=== PATIENT | female | born 1980 | race Caucasian/White ===

== ENCOUNTER 2017-11-20 14:27 | Emergency (ER) | payer MEDICAID ==
[2017-11-20 14:39] VITALS: BP 129/82
[2017-11-20] MEDS ORDERED: LORazepam 1 MG Tab PO ONE (14:55)
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
== END 2017-11-20 15:14 | disposition home or self-care (01) ==
LOC: JP.ED 14:27
DX: F41.0 Panic disorder [episodic paroxysmal anxiety] (principal); F31.9 Bipolar disorder, unspecified; F43.10 Post-traumatic stress disorder, unspecified; Z88.8 Allergy status to other drugs, medicaments and biological substances; Z79.899 Other long term (current) drug therapy; Z79.82 Long term (current) use of aspirin; Z87.01 Personal history of pneumonia (recurrent)
CPT/HCPCS: 99283; A9270

== ENCOUNTER 2022-08-26 07:12 | Day surgery (SDC) | payer BC, MEDICAID ==
[2022-08-26] MEDS ORDERED: Glycopyrrolate 0.2 MG/ML 2 ML SDV IVPUSH ONE (08:30)
[2022-08-26] MEDS ORDERED: Cyanocobalamin (Vitamin B12) 1,000 MCG/ML SDV IM ONE (08:30)
[2022-08-26] MEDS ORDERED: Lactated Ringers 1,000 ML IV ONE (08:30)
[2022-08-26] MEDS ORDERED: Propofol 200 MG/20 ML SDV ONE (08:57)
[2022-08-26] MEDS ORDERED: Midazolam 1 MG/ML 2 ML SDV ONE (08:57)
[2022-08-26] MEDS ORDERED: fentaNYL 50 MCG/ML SDV ONE (08:57)
[2022-08-26] MEDS ORDERED: MVI, Adult with Vitamin K 10 ML, Thiamine 200 MG, Chromium/Copper/Mang/Selen/Zn 1 ML in... IV ONE ×4 (09:15)
[2022-08-26 11:10] VITALS: BP 109/67; PULSE 72
== END 2022-08-26 11:25 | disposition home or self-care (01) ==
LOC: JP.SDS 07:12
PROVIDERS: ATTEND Surgery
DX: R13.10 Dysphagia, unspecified (principal); Z98.84 Bariatric surgery status; Z79.899 Other long term (current) drug therapy; Z88.5 Allergy status to narcotic agent; Z88.8 Allergy status to other drugs, medicaments and biological substances
CPT/HCPCS: 81025; 87081; J2250; J2704; J3010; J3411; J3420; J3490; J7120

== ENCOUNTER 2022-09-10 07:50 | Inpatient (IN) | payer BC, MEDICAID ==
[~2022-09-10 07:50] MED LIST: Meropenem 500 MG SDV ONE
[2022-09-10] MEDS ORDERED: Neostigmine Methylsulfate 1 MG/ML 5 ML Syringe ONE (07:51)
[2022-09-10] MEDS ORDERED: Rocuronium 50 MG/5 ML Vial ONE ×2 (07:51→11:34)
[2022-09-10] MEDS ORDERED: fentaNYL 250 MCG/5 ML SDV ONE ×3 (07:51→12:07)
[2022-09-10] MEDS ORDERED: Propofol 200 MG/20 ML SDV ONE (07:51)
[2022-09-10] MEDS ORDERED: Glycopyrrolate 0.2 MG/ML 5 ML MDV ONE (07:51)
[2022-09-10] MEDS ORDERED: Dexamethasone 4 MG/ML SDV ONE (07:51)
[2022-09-10] MEDS ORDERED: Succinylcholine 200 MG/10 ML MDV ONE (07:51)
[2022-09-10] MEDS ORDERED: Ondansetron 4 MG/2 ML SDV ONE (07:51)
[2022-09-10] MEDS ORDERED: Scopolamine 1.5 MG Transdermal Patch TOP SCH (08:00)
[2022-09-10] MEDS ORDERED: Celecoxib 200 MG Cap PO ONE (08:00)
[2022-09-10] MEDS ORDERED: Acetaminophen 500 MG Tab PO ONE (08:00)
[2022-09-10] MEDS ORDERED: Albuterol/Ipratropium 3.0-0.5 MG/3 ML Neb Soln NEB ONE (09:00)
[2022-09-10] MEDS ORDERED: Dextrose 5%-Lactated Ringers 1,000 ML IV SCH ×2 (09:00→15:15)
[2022-09-10] MEDS ORDERED: cefOXitin 2 GM in Sodium Chloride 0.9% 50 ML IV ONE (09:15)
[2022-09-10] MEDS ORDERED: Ropivacaine 50 ML, dexAMETHasone 8 MG, EPINEPHrine 0.4 MG, Sodium Chloride 0.9% 27.6 ML NERVRT SCH ×4 (09:45)
[2022-09-10] MEDS ORDERED: Naloxone 0.4 MG/ML SDV IV PRN (09:45)
[2022-09-10] MEDS ORDERED: Ketamine 500 MG/5 ML MDV IV SCH (09:45)
[2022-09-10] MEDS ORDERED: Ketamine 17 MG in Sodium Chloride 0.9% 19.83 ML IV SCH (09:45)
[2022-09-10] MEDS ORDERED: Linezolid 600 MG/300 ML Premix Bag IRR ONE (11:02)
[2022-09-10] MEDS ORDERED: Lactated Ringers 1,000 ML ONE (11:17)
[2022-09-10] MEDS: HYDROmorphone/Normal Saline 6 MG/30 ML PCA Vial IV PRN ×2 (11:21→20:43)
[2022-09-10] MEDS ORDERED: Sugammadex Sodium 200 MG/2 ML VIAL ONE (14:02)
[2022-09-10] MEDS ORDERED: Labetalol 20 MG/4 ML Syringe IVPUSH PRN (16:00)
[2022-09-10] MEDS ORDERED: Metoclopramide 10 MG/2 ML SDV IVPUSH PRN (16:00)
[2022-09-10] MEDS ORDERED: Acetaminophen 500 MG Tab PO PRN (16:00)
[2022-09-10] MEDS ORDERED: diphenhydrAMINE 50 MG/ML SDV IVPUSH PRN (16:00)
[2022-09-10] MEDS ORDERED: Ondansetron 4 MG/2 ML SDV IVPUSH PRN (16:00)
[2022-09-10] MEDS: MVI, Adult with Vitamin K 10 ML, Thiamine 200 MG, Zinc/Copper/Manganese/Selenium 1 ML i... IV SCH ×4 (16:57)
[2022-09-10] MEDS: cefOXitin 2 GM in Sodium Chloride 0.9% 50 ML IV SCH ×2 (16:58→22:28)
[2022-09-10] MEDS: SCOPOLAMINE PATCH CHECK TOP SCH (17:03)
[2022-09-10] MEDS: Acetaminophen 500 MG Tab PO SCH (17:07)
[2022-09-10] MEDS: Pantoprazole 40 MG Vial IVPUSH SCH (17:08)
[2022-09-10] MEDS: BUPRENORPHINE SL SCH ×2 (20:43)
[2022-09-10] MEDS: NALOXONE BUPRENORPHINE SL SCH ×2 (20:43)
[2022-09-10] MEDS: NALOXONE SL SCH ×2 (20:43)
[2022-09-10] MEDS: Heparin Sodium 5,000 Units/ML Vial SUBCUT SCH (20:44)
[2022-09-10] MEDS: Albuterol/Ipratropium 3.0-0.5 MG/3 ML Neb Soln INH SCH (20:45)
[2022-09-10] MEDS ORDERED: Methocarbamol 500 MG Tab PO ONE (22:00)
[2022-09-10] MEDS: Dextrose 5%-Lactated Ringers 1,000 ML IV SCH (22:28)
[2022-09-10] MEDS: Amitriptyline 25 MG Tab PO SCH (22:30)
[2022-09-10] MEDS: cloNIDine 0.1 MG Tab PO SCH (22:31)
[2022-09-10] MEDS: lamoTRIgine 100 MG Tab PO SCH (22:31)
[2022-09-10] MEDS: rOPINIRole 1 MG Tab PO SCH (22:31)
[2022-09-11] MEDS: Acetaminophen 500 MG Tab PO SCH ×4 (00:13→23:59)
[2022-09-11] MEDS ORDERED: Iopamidol 612 MG/ML 50 ML SDV PO PRN (02:56)
[2022-09-11] MEDS: cefOXitin 2 GM in Sodium Chloride 0.9% 50 ML IV SCH ×4 (03:54→21:29)
[2022-09-11] MEDS: Dextrose 5%-Lactated Ringers 1,000 ML IV SCH ×2 (03:58→05:37)
[2022-09-11] MEDS ORDERED: Iopamidol 612 MG/ML 30 ML SDV PO ONE (04:09)
[2022-09-11 05:30] LABS: ESTIMATED GFR 113 mL/min (>60)
[2022-09-11] MEDS: Albuterol/Ipratropium 3.0-0.5 MG/3 ML Neb Soln INH SCH ×4 (07:25→20:33)
[2022-09-11] MEDS: Heparin Sodium 5,000 Units/ML Vial SUBCUT SCH ×2 (08:38→20:33)
[2022-09-11] MEDS: Gabapentin 300 MG Cap PO SCH (08:39)
[2022-09-11] MEDS: Celecoxib 200 MG Cap PO SCH ×2 (08:39→20:36)
[2022-09-11] MEDS ORDERED: Dextrose 5%-Lactated Ringers 1,000 ML IV SCH (09:00)
[2022-09-11] MEDS ORDERED: Buprenorphine/Naloxone 8-2 MG Tab.SL SL SCH (09:00)
[2022-09-11] MEDS: Citalopram 20 MG Tab PO SCH (11:36)
[2022-09-11] MEDS: Paliperidone 3 MG Tab.ER PO SCH (11:36)
[2022-09-11] MEDS: lamoTRIgine 100 MG Tab PO SCH ×2 (11:37→20:35)
[2022-09-11] MEDS: Bisacodyl 5 MG Tab PO SCH ×2 (11:37→20:34)
[2022-09-11] MEDS: Polyethylene Glycol 3350 Powder 17 GM Packet PO SCH (11:37)
[2022-09-11] MEDS: SCOPOLAMINE PATCH CHECK TOP SCH (11:37)
[2022-09-11] MEDS: Docusate Sodium 100 MG Cap PO SCH ×2 (11:37→20:34)
[2022-09-11] MEDS: Buprenorphine/Naloxone 8-2 MG Tab.SL SL SCH (11:38)
[2022-09-11] MEDS: HYDROmorphone/Normal Saline 6 MG/30 ML PCA Vial IV PRN (12:17)
[2022-09-11] MEDS: MVI, Adult with Vitamin K 10 ML, Thiamine 200 MG, Zinc/Copper/Manganese/Selenium 1 ML i... IV SCH ×4 (15:00)
[2022-09-11] MEDS: Pantoprazole 40 MG Vial IVPUSH SCH (15:05)
[2022-09-11] MEDS: BUPRENORPHINE SL SCH ×2 (20:33)
[2022-09-11] MEDS: NALOXONE SL SCH ×2 (20:33)
[2022-09-11] MEDS: NALOXONE BUPRENORPHINE SL SCH ×2 (20:33)
[2022-09-11] MEDS: Amitriptyline 25 MG Tab PO SCH (20:34)
[2022-09-11] MEDS: rOPINIRole 1 MG Tab PO SCH (20:35)
[2022-09-11] MEDS ORDERED: Amitriptyline 25 MG Tab PO SCH (21:00)
[2022-09-11] MEDS ORDERED: rOPINIRole 1 MG Tab PO SCH (21:00)
[2022-09-11] MEDS ORDERED: lamoTRIgine 100 MG Tab PO SCH (21:00)
[2022-09-11] MEDS ORDERED: cloNIDine 0.1 MG Tab PO SCH (21:00)
[2022-09-11] MEDS: cloNIDine 0.1 MG Tab PO SCH (21:20)
[2022-09-11] MEDS: Methocarbamol 500 MG Tab PO PRN (21:28)
[2022-09-12] MEDS: HYDROmorphone/Normal Saline 6 MG/30 ML PCA Vial IV PRN ×2 (00:20→07:46)
[2022-09-12] MEDS: cefOXitin 2 GM in Sodium Chloride 0.9% 50 ML IV SCH ×2 (03:36→10:22)
[2022-09-12] MEDS: Albuterol/Ipratropium 3.0-0.5 MG/3 ML Neb Soln INH SCH ×4 (07:42→20:40)
[2022-09-12] MEDS: Acetaminophen 500 MG Tab PO SCH ×3 (08:18→23:08)
[2022-09-12] MEDS: Heparin Sodium 5,000 Units/ML Vial SUBCUT SCH ×2 (08:18→20:42)
[2022-09-12] MEDS: Docusate Sodium 100 MG Cap PO SCH ×2 (08:21→20:43)
[2022-09-12] MEDS: Paliperidone 3 MG Tab.ER PO SCH (08:21)
[2022-09-12] MEDS: Bisacodyl 5 MG Tab PO SCH ×2 (08:21→20:43)
[2022-09-12] MEDS: lamoTRIgine 100 MG Tab PO SCH ×2 (08:22→20:42)
[2022-09-12] MEDS: Celecoxib 200 MG Cap PO SCH ×2 (08:22→20:46)
[2022-09-12] MEDS: Citalopram 20 MG Tab PO SCH (08:22)
[2022-09-12] MEDS: Gabapentin 300 MG Cap PO SCH (08:22)
[2022-09-12] MEDS: Polyethylene Glycol 3350 Powder 17 GM Packet PO SCH (08:23)
[2022-09-12] MEDS: SCOPOLAMINE PATCH CHECK TOP SCH (08:23)
[2022-09-12] MEDS: Buprenorphine/Naloxone 8-2 MG Tab.SL SL SCH (08:30)
[2022-09-12] MEDS ORDERED: Cyanocobalamin (Vitamin B12) 1,000 MCG/ML SDV IM ONE (09:00)
[2022-09-12] MEDS ORDERED: Dextrose 5%-Lactated Ringers 1,000 ML IV SCH (09:00)
[2022-09-12] MEDS: oxyCODONE 5 MG Tab PO PRN ×3 (11:58→20:39)
[2022-09-12] MEDS ORDERED: EMGALITY SUBCUT ONE (14:30)
[2022-09-12] MEDS ORDERED: Metoclopramide 10 MG Tab PO PRN (16:24)
[2022-09-12] MEDS: Methocarbamol 500 MG Tab PO PRN (20:40)
[2022-09-12] MEDS: NALOXONE SL SCH ×2 (20:41)
[2022-09-12] MEDS: BUPRENORPHINE SL SCH ×2 (20:41)
[2022-09-12] MEDS: NALOXONE BUPRENORPHINE SL SCH ×2 (20:41)
[2022-09-12] MEDS: Amitriptyline 25 MG Tab PO SCH (20:42)
[2022-09-12] MEDS: rOPINIRole 1 MG Tab PO SCH (20:43)
[2022-09-12] MEDS: cloNIDine 0.1 MG Tab PO SCH (20:51)
[2022-09-12] MEDS: hydrOXYzine HCL 100 MG/2 ML SDV IM PRN (22:38)
[2022-09-13] MEDS: oxyCODONE 5 MG Tab PO PRN ×2 (01:13→06:01)
[2022-09-13] MEDS: Albuterol/Ipratropium 3.0-0.5 MG/3 ML Neb Soln INH PRN (01:15)
[2022-09-13] MEDS: Cyclobenzaprine 10 MG Tab PO PRN ×3 (03:48→22:39)
[2022-09-13] MEDS: Albuterol/Ipratropium 3.0-0.5 MG/3 ML Neb Soln INH SCH ×5 (06:57→20:05)
[2022-09-13] MEDS: Acetaminophen 500 MG Tab PO SCH ×2 (08:05→15:24)
[2022-09-13] MEDS: Celecoxib 200 MG Cap PO SCH ×2 (08:06→20:08)
[2022-09-13] MEDS: Citalopram 20 MG Tab PO SCH (08:07)
[2022-09-13] MEDS: Docusate Sodium 100 MG Cap PO SCH ×2 (08:08→20:06)
[2022-09-13] MEDS: Bisacodyl 5 MG Tab PO SCH ×2 (08:08→20:06)
[2022-09-13] MEDS: lamoTRIgine 100 MG Tab PO SCH ×2 (08:09→20:07)
[2022-09-13] MEDS: Paliperidone 3 MG Tab.ER PO SCH (08:09)
[2022-09-13] MEDS: Gabapentin 300 MG Cap PO SCH (08:10)
[2022-09-13] MEDS: Heparin Sodium 5,000 Units/ML Vial SUBCUT SCH ×2 (08:11→19:04)
[2022-09-13] MEDS: Buprenorphine/Naloxone 8-2 MG Tab.SL SL SCH (08:11)
[2022-09-13] MEDS: hydrOXYzine HCL 100 MG/2 ML SDV IM PRN ×3 (08:12→17:56)
[2022-09-13] MEDS: Polyethylene Glycol 3350 Powder 17 GM Packet PO SCH (08:12)
[2022-09-13] MEDS: HYDROmorphone 2 MG Tab PO PRN ×3 (10:41→22:39)
[2022-09-13] MEDS: rOPINIRole 1 MG Tab PO SCH (20:06)
[2022-09-13] MEDS: Amitriptyline 25 MG Tab PO SCH (20:06)
[2022-09-13] MEDS: cloNIDine 0.1 MG Tab PO SCH (20:07)
[2022-09-13] MEDS: NALOXONE SL SCH ×2 (20:16)
[2022-09-13] MEDS: Methocarbamol 500 MG Tab PO PRN (20:16)
[2022-09-13] MEDS: BUPRENORPHINE SL SCH ×2 (20:16)
[2022-09-13] MEDS: NALOXONE BUPRENORPHINE SL SCH ×2 (20:16)
[2022-09-14] MEDS: Acetaminophen 500 MG Tab PO SCH ×2 (00:46→08:08)
[2022-09-14] MEDS: hydrOXYzine HCL 100 MG/2 ML SDV IM PRN (01:02)
[2022-09-14] MEDS: Albuterol/Ipratropium 3.0-0.5 MG/3 ML Neb Soln INH PRN (04:48)
[2022-09-14] MEDS: HYDROmorphone 2 MG Tab PO PRN (05:35)
[2022-09-14 07:22] VITALS: BP 121/70; PULSE 81
[2022-09-14] MEDS: Albuterol/Ipratropium 3.0-0.5 MG/3 ML Neb Soln INH SCH (07:42)
[2022-09-14] MEDS: Heparin Sodium 5,000 Units/ML Vial SUBCUT SCH (08:07)
[2022-09-14] MEDS: Paliperidone 3 MG Tab.ER PO SCH (08:08)
[2022-09-14] MEDS: Celecoxib 200 MG Cap PO SCH (08:09)
[2022-09-14] MEDS: Citalopram 20 MG Tab PO SCH (08:10)
[2022-09-14] MEDS: Bisacodyl 5 MG Tab PO SCH (08:10)
[2022-09-14] MEDS: Gabapentin 300 MG Cap PO SCH (08:10)
[2022-09-14] MEDS: Docusate Sodium 100 MG Cap PO SCH (08:10)
[2022-09-14] MEDS: Polyethylene Glycol 3350 Powder 17 GM Packet PO SCH (08:11)
[2022-09-14] MEDS: lamoTRIgine 100 MG Tab PO SCH (08:11)
[2022-09-14] MEDS: Cyclobenzaprine 10 MG Tab PO PRN (08:25)
[2022-09-14] MEDS: Buprenorphine/Naloxone 8-2 MG Tab.SL SL SCH (08:35)
== END 2022-09-14 10:32 | disposition home or self-care (01) | DRG 220 ==
LOC: JP.SDS 07:50 → JP.MS 15:08
PROVIDERS: ADMIT Surgery; ATTEND Surgery
PROC: 0DB50ZZ Excision of Esophagus, Open Approach (ICD-10-PCS; principal; 2022-09-10)
PROC: 0DB60ZZ Excision of Stomach, Open Approach (ICD-10-PCS; 2022-09-10)
PROC: 0BQT0ZZ Repair Diaphragm, Open Approach (ICD-10-PCS; 2022-09-10)
PROC: 0FT20ZZ Resection of Left Lobe Liver, Open Approach (ICD-10-PCS; 2022-09-10)
PROC: 0DT80ZZ Resection of Small Intestine, Open Approach (ICD-10-PCS; 2022-09-10)
PROC: 0D150ZA Bypass Esophagus to Jejunum, Open Approach (ICD-10-PCS; 2022-09-10)
PROC: 0DQ80ZZ Repair Small Intestine, Open Approach (ICD-10-PCS; 2022-09-10)
DX: K56.2 Volvulus (principal); J69.0 Pneumonitis due to inhalation of food and vomit; M85.80 Other specified disorders of bone density and structure, unspecified site; G44.209 Tension-type headache, unspecified, not intractable; M79.7 Fibromyalgia; E55.9 Vitamin D deficiency, unspecified; E53.8 Deficiency of other specified B group vitamins; G89.29 Other chronic pain; K66.0 Peritoneal adhesions (postprocedural) (postinfection); M54.9 Dorsalgia, unspecified; K90.9 Intestinal malabsorption, unspecified; F11.90 Opioid use, unspecified, uncomplicated; K44.9 Diaphragmatic hernia without obstruction or gangrene; T18.2XXA Foreign body in stomach, initial encounter; X58.XXXA Exposure to other specified factors, initial encounter; Y92.89 Other specified places as the place of occurrence of the external cause
CPT/HCPCS: 36415; 74240; 74240-26; 80053; 82728; 82947; 83735; 83880; 84100; 84703; 85025; 86850; 86900; 86901; 88307; 88309; 93005; 94640; A9270-GY; C9113; J0171; J0330; J0574-GY; J0694; J1100; J1170; J1644; J2020; J2185; J2405; J2704; J2710; J2765; J2795; J3010; J3410; J3411; J3490; J7120; J7121; J7620; Q9967

== ENCOUNTER 2022-10-01 07:56 | Day surgery (SDC) | payer BC, MEDICAID ==
[2022-10-01] MEDS ORDERED: fentaNYL 50 MCG/ML SDV ONE (09:15)
[2022-10-01] MEDS ORDERED: Midazolam 1 MG/ML 2 ML SDV ONE (09:15)
[2022-10-01] MEDS ORDERED: Propofol 200 MG/20 ML SDV ONE (09:15)
[2022-10-01] MEDS ORDERED: Cyanocobalamin (Vitamin B12) 1,000 MCG/ML SDV IM ONE (09:30)
[2022-10-01] MEDS ORDERED: Lactated Ringers 1,000 ML IV SCH (09:30)
[2022-10-01] MEDS ORDERED: Glycopyrrolate 0.2 MG/ML 2 ML SDV IVPUSH ONE (10:00)
[2022-10-01] MEDS ORDERED: MVI, Adult with Vitamin K 10 ML, Thiamine 200 MG, Zinc/Copper/Manganese/Selenium 1 ML i... IV ONE ×4 (10:00)
[2022-10-01 11:51] VITALS: PULSE 82
[2022-10-01 11:52] VITALS: BP 110/67
[2022-10-01] MEDS ORDERED: Lidocaine 2% 60 ML, Alum Hydrox/Mag Hydrox/Simeth 360 ML PO PRN ×2 (12:00)
== END 2022-10-01 12:27 | disposition home or self-care (01) ==
LOC: JP.SDS 07:56
PROVIDERS: ATTEND Surgery
DX: R13.10 Dysphagia, unspecified (principal); R12 Heartburn; K21.9 Gastro-esophageal reflux disease without esophagitis; F31.9 Bipolar disorder, unspecified; Z98.84 Bariatric surgery status; Z79.899 Other long term (current) drug therapy; Z87.19 Personal history of other diseases of the digestive system; Z88.6 Allergy status to analgesic agent; Z88.8 Allergy status to other drugs, medicaments and biological substances
CPT/HCPCS: 43235; A9270; J2250; J2704; J3010; J3411; J3420; J3490; J7120

== ENCOUNTER 2022-10-11 07:15 | Inpatient (IN) | payer BC, MEDICAID ==
[~2022-10-11 07:15] MED LIST changes: +Bupivacaine 0.5% 50 ML MDV ONE; +Dexamethasone 4 MG/ML SDV ONE; +Glycopyrrolate 0.2 MG/ML 5 ML MDV ONE; +Lidocaine 1% with EPINEPHrine 1:100,000 50 ML MDV ONE; +Neostigmine Methylsulfate 1 MG/ML 5 ML Syringe ONE; +Ondansetron 4 MG/2 ML SDV ONE; +Propofol 200 MG/20 ML SDV ONE; +Rocuronium 50 MG/5 ML Vial ONE; +Succinylcholine 200 MG/10 ML MDV ONE; +fentaNYL 250 MCG/5 ML SDV ONE
[2022-10-11] MEDS ORDERED: HYDROmorphone/Normal Saline 6 MG/30 ML PCA Vial IV PRN (07:50)
[2022-10-11] MEDS ORDERED: Ketamine 500 MG/5 ML MDV IV SCH (07:50)
[2022-10-11] MEDS ORDERED: Ondansetron 4 MG/2 ML SDV IVPUSH PRN ×2 (07:50→14:00)
[2022-10-11] MEDS ORDERED: Albuterol/Ipratropium 3.0-0.5 MG/3 ML Neb Soln INH ONE (07:50)
[2022-10-11] MEDS ORDERED: diphenhydrAMINE 50 MG/ML SDV IVPUSH PRN ×2 (07:50→14:00)
[2022-10-11] MEDS ORDERED: Ketamine 16 MG in Sodium Chloride 0.9% 19.84 ML IV SCH (07:50)
[2022-10-11] MEDS ORDERED: Scopolamine 1.5 MG Transdermal Patch TOP ONE (07:50)
[2022-10-11] MEDS ORDERED: cefOXitin 2 GM in Sodium Chloride 0.9% 50 ML IV ONE (07:50)
[2022-10-11] MEDS ORDERED: Gabapentin 300 MG Cap PO ONE (07:50)
[2022-10-11] MEDS ORDERED: diphenhydrAMINE 25 MG Cap PO PRN (07:50)
[2022-10-11] MEDS ORDERED: Dextrose 5%-Lactated Ringers 1,000 ML IV SCH (07:50)
[2022-10-11] MEDS ORDERED: Naloxone 0.4 MG/ML SDV IV PRN ×2 (07:50→08:00)
[2022-10-11] MEDS ORDERED: Naloxone 0.4 MG/ML SDV IVPUSH PRN (07:50)
[2022-10-11] MEDS: HYDROmorphone/Normal Saline 6 MG/30 ML PCA Vial IV PRN ×2 (08:03→18:48)
[2022-10-11] MEDS ORDERED: fentaNYL 250 MCG/5 ML SDV ONE (09:03)
[2022-10-11] MEDS ORDERED: Rocuronium 50 MG/5 ML Vial ONE (10:07)
[2022-10-11] MEDS ORDERED: Linezolid 600 MG/300 ML Premix Bag IRR ONE (11:55)
[2022-10-11] MEDS ORDERED: Ondansetron 4 MG/2 ML SDV IVPUSH ONE (12:45)
[2022-10-11] MEDS: Cyclobenzaprine 10 MG Tab PO PRN (13:32)
[2022-10-11] MEDS: Dextrose 5%-Lactated Ringers 1,000 ML IV SCH ×2 (13:34→23:31)
[2022-10-11] MEDS: Gabapentin 300 MG Cap PO SCH (13:42)
[2022-10-11] MEDS ORDERED: Acetaminophen 500 MG Tab PO PRN (14:00)
[2022-10-11] MEDS ORDERED: Labetalol 20 MG/4 ML Syringe IVPUSH PRN (14:00)
[2022-10-11] MEDS ORDERED: Metoclopramide 10 MG/2 ML SDV IVPUSH PRN (14:00)
[2022-10-11] MEDS: hydrOXYzine HCl 50 MG/ML SDV IM PRN (14:35)
[2022-10-11] MEDS ORDERED: Pantoprazole 40 MG Vial IVPUSH SCH (15:00)
[2022-10-11] MEDS: cefOXitin 2 GM in Sodium Chloride 0.9% 50 ML IV SCH ×2 (15:41→21:03)
[2022-10-11] MEDS ORDERED: MVI, Adult with Vitamin K 10 ML, Thiamine 200 MG, Zinc/Copper/Manganese/Selenium 1 ML i... IV SCH ×4 (16:00)
[2022-10-11] MEDS: Acetaminophen 500 MG Tab PO SCH (18:16)
[2022-10-11] MEDS: Heparin Sodium 5,000 Units/ML Vial SUBCUT SCH (18:17)
[2022-10-11] MEDS: Gabapentin 400 MG Cap PO SCH (20:45)
[2022-10-11] MEDS: Amitriptyline 25 MG Tab PO SCH (20:45)
[2022-10-11] MEDS: lamoTRIgine 100 MG Tab PO SCH (20:45)
[2022-10-11] MEDS: cloNIDine 0.1 MG Tab PO SCH (20:46)
[2022-10-12] MEDS: Acetaminophen 500 MG Tab PO SCH ×3 (02:07→17:04)
[2022-10-12] MEDS: cefOXitin 2 GM in Sodium Chloride 0.9% 50 ML IV SCH ×4 (02:07→21:03)
[2022-10-12] MEDS ORDERED: Iopamidol 612 MG/ML 30 ML SDV PO STA (02:39)
[2022-10-12] MEDS: Heparin Sodium 5,000 Units/ML Vial SUBCUT SCH ×2 (05:15→17:04)
[2022-10-12] MEDS: Dextrose 5%-Lactated Ringers 1,000 ML IV SCH ×2 (05:46→14:11)
[2022-10-12] MEDS: HYDROmorphone/Normal Saline 6 MG/30 ML PCA Vial IV PRN ×3 (07:25→19:49)
[2022-10-12] MEDS: hydrOXYzine HCl 50 MG/ML SDV IM PRN (07:32)
[2022-10-12] MEDS: lamoTRIgine 100 MG Tab PO SCH ×2 (08:10→21:07)
[2022-10-12] MEDS: Citalopram 20 MG Tab PO SCH (08:10)
[2022-10-12] MEDS: Gabapentin 400 MG Cap PO SCH ×2 (08:10→21:06)
[2022-10-12] MEDS: Paliperidone 3 MG Tab.ER PO SCH (08:11)
[2022-10-12] MEDS: SCOPOLAMINE PATCH CHECK TOP SCH (08:11)
[2022-10-12] MEDS: Celecoxib 200 MG Cap PO SCH ×2 (08:11→21:03)
[2022-10-12] MEDS: Cyclobenzaprine 10 MG Tab PO PRN ×2 (10:10→21:14)
[2022-10-12] MEDS: Pantoprazole 40 MG Tab.CR PO SCH (11:33)
[2022-10-12] MEDS: Gabapentin 300 MG Cap PO SCH (11:33)
[2022-10-12] MEDS ORDERED: Fluconazole 100 MG Tab PO SCH (13:45)
[2022-10-12] MEDS ORDERED: Fluconazole 150 MG Tab PO ONE (14:30)
[2022-10-12] MEDS ORDERED: MVI, Adult with Vitamin K 10 ML, Thiamine 200 MG, Zinc/Copper/Manganese/Selenium 1 ML i... IV SCH ×4 (16:00)
[2022-10-12] MEDS: Buprenorphine/Naloxone 8-2 MG Tab.SL SL SCH (21:03)
[2022-10-12] MEDS: cloNIDine 0.1 MG Tab PO SCH (21:04)
[2022-10-12] MEDS: Amitriptyline 25 MG Tab PO SCH (21:06)
[2022-10-13] MEDS: Acetaminophen 500 MG Tab PO SCH ×3 (02:00→17:43)
[2022-10-13] MEDS: Dextrose 5%-Lactated Ringers 1,000 ML IV SCH ×3 (02:00→23:13)
[2022-10-13] MEDS: cefOXitin 2 GM in Sodium Chloride 0.9% 50 ML IV SCH ×2 (02:45→08:44)
[2022-10-13] MEDS: hydrOXYzine HCl 50 MG/ML SDV IM PRN ×2 (04:15→13:04)
[2022-10-13] MEDS: Heparin Sodium 5,000 Units/ML Vial SUBCUT SCH ×2 (06:03→17:44)
[2022-10-13] MEDS: HYDROmorphone/Normal Saline 6 MG/30 ML PCA Vial IV PRN ×3 (07:36→20:02)
[2022-10-13] MEDS: Pantoprazole 40 MG Tab.CR PO SCH (08:40)
[2022-10-13] MEDS: Buprenorphine/Naloxone 8-2 MG Tab.SL SL SCH ×2 (08:40→20:08)
[2022-10-13] MEDS: Celecoxib 200 MG Cap PO SCH ×2 (08:41→20:03)
[2022-10-13] MEDS: Citalopram 20 MG Tab PO SCH (08:41)
[2022-10-13] MEDS: Paliperidone 3 MG Tab.ER PO SCH (08:42)
[2022-10-13] MEDS: lamoTRIgine 100 MG Tab PO SCH ×2 (08:43→20:04)
[2022-10-13] MEDS: Gabapentin 400 MG Cap PO SCH ×2 (08:44→20:04)
[2022-10-13] MEDS: SCOPOLAMINE PATCH CHECK TOP SCH (08:45)
[2022-10-13] MEDS: Cyclobenzaprine 10 MG Tab PO PRN ×2 (08:57→17:50)
[2022-10-13] MEDS ORDERED: Cyanocobalamin (Vitamin B12) 1,000 MCG/ML SDV IM ONE (09:00)
[2022-10-13] MEDS: Docusate Sodium 100 MG Cap PO SCH ×2 (09:53→20:03)
[2022-10-13] MEDS: Bisacodyl 5 MG Tab PO SCH ×2 (09:53→20:03)
[2022-10-13] MEDS: Albuterol/Ipratropium 3.0-0.5 MG/3 ML Neb Soln INH PRN (11:36)
[2022-10-13] MEDS: Gabapentin 300 MG Cap PO SCH (11:37)
[2022-10-13] MEDS ORDERED: Calcium Carbonate 500 MG Tab.Chew PO PRN (12:49)
[2022-10-13] MEDS: Aluminum Hydroxide/Magnesium Hydroxide/Simethicone Susp 30 ML Cup PO PRN ×2 (13:05→17:50)
[2022-10-13] MEDS ORDERED: Polyethylene Glycol 3350 Powder 17 GM Packet PO PRN (17:19)
[2022-10-13] MEDS: cloNIDine 0.1 MG Tab PO SCH (20:04)
[2022-10-13] MEDS: rOPINIRole 1 MG Tab PO SCH (20:05)
[2022-10-13] MEDS: Amitriptyline 25 MG Tab PO SCH (20:05)
[2022-10-14] MEDS: Acetaminophen 500 MG Tab PO SCH ×3 (01:45→17:12)
[2022-10-14] MEDS: Heparin Sodium 5,000 Units/ML Vial SUBCUT SCH ×2 (05:07→17:12)
[2022-10-14] MEDS: Cyclobenzaprine 10 MG Tab PO PRN ×2 (05:16→21:45)
[2022-10-14] MEDS: HYDROmorphone/Normal Saline 6 MG/30 ML PCA Vial IV PRN ×2 (07:36→18:18)
[2022-10-14] MEDS: Pantoprazole 40 MG Tab.CR PO SCH (08:27)
[2022-10-14] MEDS: Bisacodyl 5 MG Tab PO SCH ×2 (08:27→21:27)
[2022-10-14] MEDS: Gabapentin 400 MG Cap PO SCH ×2 (08:27→21:27)
[2022-10-14] MEDS: lamoTRIgine 100 MG Tab PO SCH ×2 (08:27→21:27)
[2022-10-14] MEDS: Buprenorphine/Naloxone 8-2 MG Tab.SL SL SCH ×2 (08:27→21:33)
[2022-10-14] MEDS: Paliperidone 3 MG Tab.ER PO SCH (08:27)
[2022-10-14] MEDS: Citalopram 20 MG Tab PO SCH (08:27)
[2022-10-14] MEDS: Celecoxib 200 MG Cap PO SCH ×2 (08:27→21:24)
[2022-10-14] MEDS: Docusate Sodium 100 MG Cap PO SCH ×2 (08:27→21:27)
[2022-10-14] MEDS: Dextrose 5%-Lactated Ringers 1,000 ML IV SCH ×2 (08:35→23:03)
[2022-10-14] MEDS ORDERED: Linezolid 600 MG in Premix Bag 1 BAG IV SCH (11:00)
[2022-10-14] MEDS: Piperacillin/Tazobactam/Dext 3.375 GM in Premix Bag 1 BAG IV SCH ×3 (11:53→23:04)
[2022-10-14] MEDS: Doxycycline 100 MG in Sodium Chloride 0.9% 100 ML IV SCH (12:50)
[2022-10-14] MEDS: Gabapentin 300 MG Cap PO SCH (12:51)
[2022-10-14] MEDS: hydrOXYzine HCl 50 MG/ML SDV IM PRN (17:20)
[2022-10-14] MEDS: Amitriptyline 25 MG Tab PO SCH (21:24)
[2022-10-14] MEDS: cloNIDine 0.1 MG Tab PO SCH (21:26)
[2022-10-14] MEDS: rOPINIRole 1 MG Tab PO SCH (21:28)
[2022-10-15] MEDS: Doxycycline 100 MG in Sodium Chloride 0.9% 100 ML IV SCH ×3 (00:13→23:30)
[2022-10-15] MEDS: Acetaminophen 500 MG Tab PO SCH ×3 (02:14→17:57)
[2022-10-15] MEDS: Albuterol/Ipratropium 3.0-0.5 MG/3 ML Neb Soln INH PRN (04:57)
[2022-10-15] MEDS: Heparin Sodium 5,000 Units/ML Vial SUBCUT SCH ×2 (05:24→17:57)
[2022-10-15] MEDS ORDERED: Furosemide 20 MG/2 ML VIAL IVPUSH ONE ×2 (05:24→10:00)
[2022-10-15] MEDS: Piperacillin/Tazobactam/Dext 3.375 GM in Premix Bag 1 BAG IV SCH ×4 (05:25→22:30)
[2022-10-15] MEDS: Buprenorphine/Naloxone 8-2 MG Tab.SL SL SCH ×2 (08:20→20:19)
[2022-10-15] MEDS: Pantoprazole 40 MG Tab.CR PO SCH (08:20)
[2022-10-15] MEDS: Celecoxib 200 MG Cap PO SCH ×2 (08:20→20:08)
[2022-10-15] MEDS: Paliperidone 3 MG Tab.ER PO SCH (08:20)
[2022-10-15] MEDS: Gabapentin 400 MG Cap PO SCH ×2 (08:21→20:09)
[2022-10-15] MEDS: Docusate Sodium 100 MG Cap PO SCH ×2 (08:21→20:09)
[2022-10-15] MEDS: Citalopram 20 MG Tab PO SCH (08:21)
[2022-10-15] MEDS: Bisacodyl 5 MG Tab PO SCH ×2 (08:21→20:08)
[2022-10-15] MEDS: lamoTRIgine 100 MG Tab PO SCH ×2 (08:21→20:08)
[2022-10-15] MEDS: Aluminum Hydroxide/Magnesium Hydroxide/Simethicone Susp 30 ML Cup PO PRN (08:37)
[2022-10-15] MEDS: Cyclobenzaprine 10 MG Tab PO PRN ×2 (08:37→22:41)
[2022-10-15] MEDS: HYDROmorphone 2 MG Tab PO PRN ×3 (10:40→19:36)
[2022-10-15] MEDS: Dextrose 5%-Lactated Ringers 1,000 ML IV SCH (10:44)
[2022-10-15] MEDS: Gabapentin 300 MG Cap PO SCH (12:33)
[2022-10-15] MEDS: rOPINIRole 1 MG Tab PO SCH (20:08)
[2022-10-15] MEDS: Amitriptyline 25 MG Tab PO SCH (20:09)
[2022-10-16] MEDS: Acetaminophen 500 MG Tab PO SCH ×3 (01:20→17:15)
[2022-10-16] MEDS: HYDROmorphone 2 MG Tab PO PRN ×5 (02:41→20:22)
[2022-10-16] MEDS: Dextrose 5%-Lactated Ringers 1,000 ML IV SCH (02:59)
[2022-10-16] MEDS: Heparin Sodium 5,000 Units/ML Vial SUBCUT SCH ×2 (05:02→17:14)
[2022-10-16] MEDS: Piperacillin/Tazobactam/Dext 3.375 GM in Premix Bag 1 BAG IV SCH ×2 (05:02→12:33)
[2022-10-16 05:40] LABS: ESTIMATED GFR 93 mL/min (>60)
[2022-10-16] MEDS: Pantoprazole 40 MG Tab.CR PO SCH (07:17)
[2022-10-16] MEDS: Bisacodyl 5 MG Tab PO SCH ×2 (08:21→20:13)
[2022-10-16] MEDS: Gabapentin 400 MG Cap PO SCH ×2 (08:21→20:13)
[2022-10-16] MEDS: Citalopram 20 MG Tab PO SCH (08:21)
[2022-10-16] MEDS: Celecoxib 200 MG Cap PO SCH ×2 (08:21→20:12)
[2022-10-16] MEDS: lamoTRIgine 100 MG Tab PO SCH ×2 (08:21→20:14)
[2022-10-16] MEDS: Paliperidone 3 MG Tab.ER PO SCH (08:21)
[2022-10-16] MEDS: Docusate Sodium 100 MG Cap PO SCH ×2 (08:21→20:13)
[2022-10-16] MEDS: Buprenorphine/Naloxone 8-2 MG Tab.SL SL SCH ×2 (08:21→20:22)
[2022-10-16] MEDS: Albuterol/Ipratropium 3.0-0.5 MG/3 ML Neb Soln INH PRN (08:33)
[2022-10-16] MEDS ORDERED: Furosemide 20 MG/2 ML VIAL IV ONE (09:00)
[2022-10-16] MEDS: Gabapentin 300 MG Cap PO SCH (12:33)
[2022-10-16] MEDS: Doxycycline 100 MG in Sodium Chloride 0.9% 100 ML IV SCH (13:05)
[2022-10-16] MEDS: Cyclobenzaprine 10 MG Tab PO PRN (14:48)
[2022-10-16] MEDS ORDERED: Levofloxacin 500 MG Tab PO ONE (15:14)
[2022-10-16] MEDS ORDERED: Levofloxacin 500 MG Tab PO SCH (15:30)
[2022-10-16] MEDS: Amitriptyline 25 MG Tab PO SCH (20:14)
[2022-10-16] MEDS: rOPINIRole 1 MG Tab PO SCH (20:15)
[2022-10-16] MEDS: Levofloxacin 500 MG Tab PO SCH (20:43)
[2022-10-17] MEDS: HYDROmorphone 2 MG Tab PO PRN ×6 (00:24→20:53)
[2022-10-17] MEDS: Acetaminophen 500 MG Tab PO SCH ×3 (01:10→17:13)
[2022-10-17] MEDS: Heparin Sodium 5,000 Units/ML Vial SUBCUT SCH ×2 (05:09→17:13)
[2022-10-17 05:20] LABS: ESTIMATED GFR 109 mL/min (>60)
[2022-10-17] MEDS: Cyclobenzaprine 10 MG Tab PO PRN ×2 (07:13→15:21)
[2022-10-17] MEDS: Pantoprazole 40 MG Tab.CR PO SCH (07:14)
[2022-10-17] MEDS: Buprenorphine/Naloxone 8-2 MG Tab.SL SL SCH ×2 (08:43→20:16)
[2022-10-17] MEDS: Citalopram 20 MG Tab PO SCH (08:44)
[2022-10-17] MEDS: Docusate Sodium 100 MG Cap PO SCH ×2 (08:44→20:17)
[2022-10-17] MEDS: Bisacodyl 5 MG Tab PO SCH ×2 (08:44→20:17)
[2022-10-17] MEDS: Celecoxib 200 MG Cap PO SCH ×2 (08:44→20:17)
[2022-10-17] MEDS: Paliperidone 3 MG Tab.ER PO SCH (08:45)
[2022-10-17] MEDS: lamoTRIgine 100 MG Tab PO SCH ×2 (08:45→20:18)
[2022-10-17] MEDS: Gabapentin 400 MG Cap PO SCH ×2 (08:45→20:18)
[2022-10-17] MEDS: Magnesium Oxide 400 MG Tab PO SCH (10:18)
[2022-10-17] MEDS: Potassium Chloride 20 MEQ Tab.ER PO SCH ×3 (10:18→17:13)
[2022-10-17] MEDS: Ondansetron 4 MG Tab.DIS PO PRN (11:04)
[2022-10-17] MEDS: Gabapentin 300 MG Cap PO SCH (11:22)
[2022-10-17] MEDS: Albuterol/Ipratropium 3.0-0.5 MG/3 ML Neb Soln INH PRN ×2 (15:21→22:54)
[2022-10-17] MEDS: Amitriptyline 25 MG Tab PO SCH (20:17)
[2022-10-17] MEDS: rOPINIRole 1 MG Tab PO SCH (20:18)
[2022-10-17] MEDS: Levofloxacin 500 MG Tab PO SCH (20:18)
[2022-10-18] MEDS: Acetaminophen 500 MG Tab PO SCH ×2 (02:23→08:59)
[2022-10-18] MEDS: HYDROmorphone 2 MG Tab PO PRN ×3 (02:23→11:30)
[2022-10-18] MEDS: Cyclobenzaprine 10 MG Tab PO PRN (04:16)
[2022-10-18] MEDS: Heparin Sodium 5,000 Units/ML Vial SUBCUT SCH (05:15)
[2022-10-18] MEDS: Pantoprazole 40 MG Tab.CR PO SCH (07:17)
[2022-10-18 07:19] VITALS: BP 103/64; PULSE 96
[2022-10-18] MEDS: Buprenorphine/Naloxone 8-2 MG Tab.SL SL SCH (08:53)
[2022-10-18] MEDS: Docusate Sodium 100 MG Cap PO SCH (08:54)
[2022-10-18] MEDS: lamoTRIgine 100 MG Tab PO SCH (08:54)
[2022-10-18] MEDS: Magnesium Oxide 400 MG Tab PO SCH (08:54)
[2022-10-18] MEDS: Bisacodyl 5 MG Tab PO SCH (08:54)
[2022-10-18] MEDS: Citalopram 20 MG Tab PO SCH (08:54)
[2022-10-18] MEDS: Paliperidone 3 MG Tab.ER PO SCH (08:54)
[2022-10-18] MEDS: Celecoxib 200 MG Cap PO SCH (08:54)
[2022-10-18] MEDS: Gabapentin 400 MG Cap PO SCH (08:55)
[2022-10-18] MEDS: Ondansetron 4 MG Tab.DIS PO PRN (10:11)
[2022-10-18] MEDS: Gabapentin 300 MG Cap PO SCH (11:32)
== END 2022-10-18 14:30 | disposition home or self-care (01) | DRG 221 ==
LOC: JP.SDS 07:15 → JP.MS 13:09
PROVIDERS: ADMIT Surgery; ATTEND Surgery
PROC: 0DT80ZZ Resection of Small Intestine, Open Approach (ICD-10-PCS; principal; 2022-10-11)
PROC: 0D1A0ZA Bypass Jejunum to Jejunum, Open Approach (ICD-10-PCS; principal; 2022-10-11)
PROC: 0DQ80ZZ Repair Small Intestine, Open Approach (ICD-10-PCS; 2022-10-11)
PROC: 0DBW0ZZ Excision of Peritoneum, Open Approach (ICD-10-PCS; 2022-10-11)
PROC: 0DS80ZZ Reposition Small Intestine, Open Approach (ICD-10-PCS; 2022-10-11)
DX: K56.2 Volvulus (principal); J69.0 Pneumonitis due to inhalation of food and vomit; J98.11 Atelectasis; F41.9 Anxiety disorder, unspecified; F31.9 Bipolar disorder, unspecified; M79.7 Fibromyalgia; Z90.49 Acquired absence of other specified parts of digestive tract; Z90.89 Acquired absence of other organs; Z98.890 Other specified postprocedural states; Z88.8 Allergy status to other drugs, medicaments and biological substances; Z98.51 Tubal ligation status; Z79.899 Other long term (current) drug therapy
CPT/HCPCS: 36415; 71046; 71046-26; 74240; 74240-26; 80048; 80053; 82728; 82947; 83735; 84100; 85025; 86850; 86900; 86901; 86920; 86922; 87070; 87075; 87077; 87205; 94640; 94667; 94668; A9270-GY; C9113; J0131; J0171; J0330; J0574-GY; J0694; J1100; J1170; J1644; J1940; J2020; J2185; J2405; J2543; J2704; J2710; J2765; J2795; J3010; J3410; J3411; J3420; J3490; J7121; J7620; P9047; Q0162; Q9967